=== PATIENT | male | born 1975 | race Caucasian/White ===

== ENCOUNTER 2022-01-17 18:13 | Inpatient (IN) | payer MEDICARE, OTHER ==
[~2022-01-17] VITALS: Ht 180.3 cm; Wt 88.9 kg
--- NOTE | 2022-01-17 18:19 | NUR ---
IGNACIA Foster FROM [facility], FOUND BY STAFF ALTERED. 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 TO ER BED 5, HOOKED TO MONITOR, CHANGED TO HOSP GOWN, WARM BLANKET PROVIDED. PATIENT AWAKE AND VERBALLY RESPONSIVE. BG 128. TO ER BED 5, HOOKED TO MONITOR. CHANGED TO HOSP GOWN, STARTED W 1L NS AT LAC 18G. DR VALDOVINOS AT BEDSIDE
[2022-01-17] MEDS ORDERED: IV NS 0.9% 1,000 ML BAG IV ONE (18:30)
[2022-01-17] MEDS ORDERED: IV NS 0.9% 1,000 ML IV ONE ×2 (18:30→20:30)
--- NOTE | 2022-01-17 18:49 | NUR ---
COVID SWAB DONE AND SENT TO LAB
--- NOTE | 2022-01-17 18:50 | NUR ---
URINE COLLECTED AND SENT TO LAB
[2022-01-17 19:27] LABS: BILIRUBIN,URINE SMALL (NEGATIVE); COLOR,URINE YELLOW (YELLOW); LEUKOCYTE ESTERASE ,URINE NEGATIVE (NEGATIVE); NITRITE, URINE NEGATIVE (NEGATIVE); PH,URINE 5.5 (5.0-8.0); PROTEIN,URINE TRACE mg/dl (NEGATIVE); UGLUCOSE NEGATIVE (NEGATIVE); UROBILINOGEN,URINE 0.2 EU/dL (0.2)
[2022-01-17 19:30] LABS: BACTERIA,URINE None seen /HPF (None Seen); MUCUS,URINE Few /LPF (None Seen); RBC,URINE 0-2 /HPF (0-2); SQUAMOUS EPITHELIAL CELL,UR 0-2 /HPF (None Seen); WBC,URINE 0-2 /HPF (0-3)
--- NOTE | 2022-01-17 19:31 | NUR ---
RECEIVED REPORT FROM SRIRAM PLATA FOR JOSETTE
[2022-01-17 19:37] LABS: CALCIUM, SERUM 7.9 mg/dL (8.5-10.1); CARBON DIOXIDE 29 mmol/L (21-32); CHLORIDE 103 mmol/L (98-107); GLUCOSE 121 mg/dL (74-106); POTASSIUM 4.6 mmol/L (3.5-5.1); SODIUM SERUM 140 mmol/L (136-145); UREA NITROGEN, BLOOD 66 mg/dL (7-18)
--- NOTE | 2022-01-17 19:40 | NUR ---
PT RESTING IN BED, ON HIGH REBREATHER 15L. AAOX2. CONNECTED TO MONITOR. WILL CONTINUE TO MONITOR.
[2022-01-17 19:46] LABS: ALANINE AMINOTRANSFERASE 17 U/L (12-78); ALBUMIN 2.8 g/dL (3.4-5.0); ALKALINE PHOSPHATASE 32 U/L (46-116); ASPARTATE AMINOTRANSFERASE 17 U/L (15-37); BILIRUBIN,DIRECT 0.2 mg/dL (0.0-0.2); BILIRUBIN,TOTAL 0.5 mg/dL (0.2-1.0); TOTAL PROTEIN, SERUM 6.6 g/dL (6.4-8.2)
[2022-01-17 19:51] LABS: ACETAMINOPHEN < 10 ug/ml (10-30); ALCOHOL, BLOOD < 3 mg/dL (0-0)
--- NOTE | 2022-01-17 20:00 | NUR ---
URINE SAMPLE COLLECTED AND SENT TO LAB
[2022-01-17 20:25] LABS: BASOPHILS % (AUTO) 0.1 % (0.0-2.0); HEMATOCRIT 33 % (39-51); HEMOGLOBIN 11.4 g/dL (13.5-17.5); LYMPHOCYTES # (AUTO) 0.8 K/uL (0.8-4.8); LYMPHOCYTES % (AUTO) 5.9 % (20.0-44.0); MEAN CORPUSCULAR HGB CONC 34 g/dl (31.0-36.0); MEAN CORPUSCULAR VOLUME 97 fL (80-96); MONOCYTES # (AUTO) 3.5 K/uL (0.1-1.30); MONOCYTES % (AUTO) 26.3 % (2.0-12.0); NEUTROPHILS # (AUTO) 9.1 K/uL (1.8-8.9); NEUTROPHILS % (AUTO) 67.7 % (43.0-81.0); PLATELET COUNT (AUTO) 59 K/uL (150-450); RED BLOOD CELL COUNT(AUTO) 3.42 MIL/uL (4.5-6.0); WHITE BLOOD COUNT (AUTO) 13.4 K/uL (4.3-11.0)
--- NOTE | 2022-01-17 20:29 | NUR ---
TITRATED O2 DOWN TO 10L ON NON REBREATHER, PT O2 SAT 100. WILL CONTINUE TO MONITOR
--- NOTE | 2022-01-17 20:44 | NUR ---
PT TAKEN FOR CT SCAN
[2022-01-17] MEDS ORDERED: VANCOMYCIN 1 GM VIAL ONE (20:45)
[2022-01-17] MEDS ORDERED: PIPERACILLIN /TAZOBACTAM 3.375 G VIAL IV ONE (20:45)
[2022-01-17] MEDS ORDERED: PIPERACILLIN /TAZOBACTAM 3.375 G in IV D5W 50 ML IV ONE (21:00)
[2022-01-17] MEDS ORDERED: VANCOMYCIN HCL 1.25 GM in IV D5W 260 ML IV ONE (21:00)
--- NOTE | 2022-01-17 21:01 | NUR ---
PT RETURNED FROM CT SCAN , O2 SAT NOTED AT 78 ON NONREBREATHER 10L. INCREASED O2 15L NOW SATTING AT 81. MADE AWARE. RT CALLED.
--- NOTE | 2022-01-17 21:05 | NUR ---
RT AT BEDSIDE
--- NOTE | 2022-01-17 21:25 | NUR ---
RT pt placed on hhfnc post abg results. hhfnc settings 40L 100%. sat mid 90s. tolerating well.
[2022-01-17 21:32] LABS: BAND % (MANUAL) 8 % (0.0-5.0); LYMPHOCYTES % (MANUAL) 14 % (16-48); MONOCYTES % (MANUAL) 15 % (0-11.0); NEUTROPHILS % (MANUAL) 63 (42-76)
--- NOTE | 2022-01-17 21:43 | NUR ---
REPORT GIVEN TO SHERLYN GILL
--- NOTE | 2022-01-17 21:46 | NUR ---
REPORT GIVEN TO JULIENNE Varela FROM [facility]
[2022-01-17 21:54] LABS: ABG BASE EXCESS -3.6 mmol/L; ABG PCO2 47.5 mmHg (35.0-45.0); ABG PH 7.301 (7.350-7.450); ABG PO2 63.9 mmHg (75.0-100.0); COHb 0.3 % (0.5-1.5); MetHb 0.5 % (0.0-1.5); O2Hb 89.1 % (94.0-97.0); SITE, ABG Left Radial; VENT MODE, BG NRB
--- NOTE | 2022-01-17 22:44 | NUR ---
PAUL ADAM CONTACTED AND NOTIFIED THAT PT'S O2 STILL LOW DESPITE HI FLOW O2 W/ NON REBREATHER ON TOP.
--- NOTE | 2022-01-17 22:49 | NUR ---
BP NOTED AT 64/31 L ARM, 60/36 R ARM . MD MADE AWARE. AWAITING MD ORDERS
[2022-01-17] MEDS ORDERED: NOREPINEPHRINE 4 MG/4 ML AMPUL IV ONE (22:54)
[2022-01-17] MEDS ORDERED: HYDROCORTISONE SOD SUCCINATE 100 MG/2 ML VIAL IV ONE (23:00)
[2022-01-17] MEDS ORDERED: ACETAMINOPHEN 325 MG TABLET PO PRN (23:00)
--- NOTE | 2022-01-17 23:00 | NUR ---
INITIATED LEVOPHED 32MG IN 250ML OF 0.9 NS PER MD ORDERS, VIA PUMP LAC18G @0.1MCG. WILL CONTINUE TO MONITOR.
[2022-01-17] MEDS: NOREPINEPHRINE 32 MG in IV NS 0.9% 218 ML IV PRN (23:15)
--- NOTE | 2022-01-17 23:15 | NUR ---
RT pt placed on dual set up, hhfnc and nrb. pt sat 90%. post sat mid 90s. tolerating well.
--- NOTE | 2022-01-17 23:37 | NUR ---
BP 102/60 , WILL MAINTAIN LEVOPHEN DRIP @0.1MCG/KG/MIN. AT THIS TIME . WILL CONTINUE TO MONITOR
[2022-01-18] VITALS (83 sets, daily range): BP systolic 75–138; BP diastolic 46–88
--- NOTE | 2022-01-18 00:20 | NUR ---
RN NOTES RECEIVED CARE OF PATIENT FROM ER NURSE, PATIENT CONFUSED, A/O X2, ABLE TO FOLLOW SIMPLE COMMANDS AND MAKE BASIC NEEDS KNOWN. PATIENT NOTED WITH SOB, ON O2 HIGH FLOW VIA NC AT 40 L/MIN AND 100% FIO2, AND NRB MASK AT 15 L/MIN, O2 SAT IS 100%. PATIENT'S TELE MONITOR READS SINUS RHYTHM WITH HR OF 72, NO DISTRESS NOTED ON PATIENT. SKIN IS INTACT. IV ACCESS ON L & R AC #18, RUNNING WITH LEVO DRIP AT 0.1 MCG/KG/MIN, AND IV NS AT 80 ML/MIN. CARE PLAN REVIEWED, PATIENT EDUCATED ON CARE PLAN. SAFETY MEASURES IMPLEMENTED PER HOSPITAL PROTOCOL. WILL CARRY OUT MD ORDERS AND ATTEND TO PATIENT'S NEEDS.
--- NOTE | 2022-01-18 00:31 | NUR ---
RT pt transferred to floor. placed on dual set up. ambu bag at bedside.
[2022-01-18] MEDS: IV NS 0.9% 1,000 ML IV PRN ×2 (00:53→18:09)
[2022-01-18] MEDS ORDERED: PIPERACILLIN /TAZOBACTAM 3.375 G in IV D5W 50 ML IV ONE ×4 (03:00)
[2022-01-18] MEDS: HEPARIN SODIUM, PORCINE 5000 UNITS/1 ML VIAL SQ SCH ×2 (03:00→08:41)
[2022-01-18] MEDS ORDERED: PIPERACILLIN /TAZOBACTAM 3.375 G VIAL IV ONE (03:15)
--- NOTE | 2022-01-18 03:29 | NUR ---
fiO2 titrated to 80% and 35L. Pt is no longer on double oxygen setup RN notified.
[2022-01-18 04:36] LABS: BASOPHILS % (AUTO) 0.1 % (0.0-2.0); HEMATOCRIT 32 % (39-51); HEMOGLOBIN 11.4 g/dL (13.5-17.5); LYMPHOCYTES # (AUTO) 0.7 K/uL (0.8-4.8); LYMPHOCYTES % (AUTO) 5.1 % (20.0-44.0); MEAN CORPUSCULAR HGB CONC 35 g/dl (31.0-36.0); MEAN CORPUSCULAR VOLUME 95 fL (80-96); MONOCYTES # (AUTO) 2.9 K/uL (0.1-1.30); NEUTROPHILS % (AUTO) 74.8 % (43.0-81.0); PLATELET COUNT (AUTO) 59 K/uL (150-450); RED BLOOD CELL COUNT(AUTO) 3.37 MIL/uL (4.5-6.0); WHITE BLOOD COUNT (AUTO) 14.7 K/uL (4.3-11.0)
[2022-01-18 04:56] LABS: ALBUMIN 2.4 g/dL (3.4-5.0); BILIRUBIN,TOTAL 0.5 mg/dL (0.2-1.0); CALCIUM, SERUM 7.7 mg/dL (8.5-10.1); CREATININE 2.2 mg/dL (0.6-1.3); POTASSIUM 4.8 mmol/L (3.5-5.1); TOTAL PROTEIN, SERUM 6.2 g/dL (6.4-8.2)
[2022-01-18 05:00] LABS: BAND % (MANUAL) 8 % (0.0-5.0); BASOPHILS % (MANUAL) 0 % (0.0-2.0); EOSINOPHILS % (MANUAL) 0 % (0-4); LYMPHOCYTES % (MANUAL) 4 % (16-48); MONOCYTES % (MANUAL) 23 % (0-11.0); NEUTROPHILS % (MANUAL) 65 (42-76)
--- NOTE | 2022-01-18 07:18 | NUR ---
RN NOTES ENDORSED CARE OF PATIENT TO AM NURSE, PATIENT HAS PROGRESSED TO BEING ALERT AND ORIENTED X3, ABLE TO MAKE NEEDS KNOWN. PATIENT IN NO DISCOMFORT OR PAIN AT THIS TIME. O2 TITRATED DOWN TO HIGH FLOW NC AT 35L/MIN WITH FIO2 AT 80%, O2 SAT 100%. CARE PLAN FOLLOWED AND CARRIED OUT. SAFETY MEASURES IMPLEMENTED PER HOSPITAL PROTOCOLS. ENDORSED CARE OF PATIENT TO AM NURSE FOR CONTINUITY OF CARE.
--- NOTE | 2022-01-18 07:44 | NUR ---
fio2 decreased from 80% to 60% for O2 titration. Addendum: 01/18/22 at 0745 by MICKEY CRAWFORD RT Amended: Links added.
[2022-01-18] MEDS: DEXAMETHASONE SOD PHOSPHATE 4 MG/ML VIAL IV SCH (08:34)
[2022-01-18] MEDS ORDERED: PIPERACILLIN /TAZOBACTAM 3.375 G in IV D5W 50 ML IV SCH ×3 (09:00)
[2022-01-18] MEDS ORDERED: APIXABAN 2.5 MG TABLET PO SCH (09:00)
[2022-01-18] MEDS: PIPERACILLIN /TAZOBACTAM 3.375 G in IV D5W 100 ML IV SCH ×2 (10:56→17:55)
[2022-01-18] MEDS ORDERED: IV NS 0.9% 1,000 ML IV ONE (14:30)
[2022-01-18] MEDS: ARGATROBAN 250 MG in IV D5W 247.5 ML IV PRN (17:19)
--- NOTE | 2022-01-18 19:44 | NUR ---
RN NOTES RECEIVED CARE OF PATIENT FROM AM NURSE, PATIENT IS SLEEPING, WAKES UP TO NAME. PATIENT ON HIGH FLOW O2 VIA NC AT 35L/MIN AND 60% FIO02, O2 SAT 99%, NO SIGNS OF DISTRESS. AM NURSE ENDORSED THAT PATIENT HAS BEEN BRADYCARDIC ALL DAY WITH HR BETWEEN 45-50 BPM, DR GARBER MADE AWARE, HR RISES TO 60'S ONCE PATIENT IS WOKEN UP. PATIENT RUNNING WITH IV NS AT 100ML/HR, LEVO DRIP AT 0.04 MCG/KG/MIN, ARGATROBAN DRIP AT 0.2 MCG/KG/MIN. SAFETY MEASURES IMPLEMENTED. WILL CARRY OUT PLAN OF CARE.
--- NOTE | 2022-01-18 20:05 | NUR ---
RT Notes FIO2 titrated from 60% to 50% due to SpO2 97%. Will cont to monitor. Addendum: 01/19/22 at 0006 by AZEB COOK RT Amended: Links added.
[2022-01-18] MEDS ORDERED: VANCOMYCIN 1.25 GM in IV D5W 250 ML IV SCH (21:00)
--- NOTE | 2022-01-18 22:18 | NUR ---
RN NOTES PATIENT'S HEART RATE SUSTAINED BETWEEN 35-40 BPM FOR ABOUT TWO MINUTES THEN INCREASED UP TO HIGH 40'S. PATIENT IS SLEEPING, WAKES UP TO NAME, NO DISTRESS NOTED ON PATIENT. PATIENT ON LEVO DRIP AT 0.04 MCG/KG/MIN WITH SBP WNL. DR. GARBER MADE AWARE, NO NEW ORDERS.
[2022-01-18] MEDS: NOREPINEPHRINE 32 MG in IV NS 0.9% 218 ML IV PRN (23:01)
[2022-01-18] MEDS ORDERED: ATROPINE SULFATE 1 MG/10 ML DISP.SYRIN IV ONE (23:30)
--- NOTE | 2022-01-18 23:30 | NUR ---
RN NOTES PATIENT'S HEART RATE WAS CONSISTENTLY IN THE LOW 40'S, PATIENT NOTED TO BE LETHARGIC. KIA BAUTISTA EDUCATION ASSISTANT EVALUATED THE PATIENT, DISCUSSED TREATMENT PLAN WITH RN, ORDER IS TO HOLD ARGATROBAN DRIP ONE OF THE SIDE EFFECTS OF THIS MEDICATION LOWERS THE HEART RATE. MEDICATION HELD, NOW HEART RATE IS 128 BPM, PATIENT IS AWAKE, NO SIGNS OF ACUTE DISTRESS NOTED.
--- NOTE | 2022-01-18 23:50 | NUR ---
RT notes FIO2 increased from 50% to 70% due to SpO2 dropping to 87% and HR increasing from 40's to 128. Addendum: 01/19/22 at 0012 by AZEB COOK RT Amended: Links added.
[2022-01-19] VITALS (80 sets, daily range): BP systolic 58–133; BP diastolic 29–100
--- NOTE | 2022-01-19 00:20 | NUR ---
RN NOTES PATIENT NOTED TO BE IN UNCONTROLLED AFIB WITH HR BETWEEN 115-140. PATIENT IS AWAKE, NO ACUTE DISTRESS NOTED ON PATIENT. KIA BAUTISTA LOCK SETTER AT PATIENT'S BEDSIDE. ORDER TO RESUME ARGATROBAN DRIP AND ADMINISTER METOPROLOL 5MG IV ONCE.
[2022-01-19] MEDS ORDERED: METOPROLOL TARTRATE INJ 5 MG/5 ML AMPUL IVP ONE (00:30)
--- NOTE | 2022-01-19 01:55 | NUR ---
RT Notes FIO2 titrated from 70% to 55% due to FIO2 97%. Addendum: 01/19/22 at 0207 by AZEB COOK RT Amended: Links added.
[2022-01-19] MEDS: PIPERACILLIN /TAZOBACTAM 3.375 G in IV D5W 100 ML IV SCH ×3 (03:13→20:11)
[2022-01-19 05:28] LABS: BASOPHILS % (AUTO) 0.1 % (0.0-2.0); HEMATOCRIT 36 % (39-51); HEMOGLOBIN 12.6 g/dL (13.5-17.5); LYMPHOCYTES % (AUTO) 8.8 % (20.0-44.0); MEAN CORPUSCULAR HGB CONC 35 g/dl (31.0-36.0); MEAN CORPUSCULAR VOLUME 95 fL (80-96); MONOCYTES # (AUTO) 1.4 K/uL (0.1-1.30); MONOCYTES % (AUTO) 12.3 % (2.0-12.0); NEUTROPHILS # (AUTO) 9.1 K/uL (1.8-8.9); NEUTROPHILS % (AUTO) 78.8 % (43.0-81.0); PLATELET COUNT (AUTO) 57 K/uL (150-450); RED BLOOD CELL COUNT(AUTO) 3.81 MIL/uL (4.5-6.0); WHITE BLOOD COUNT (AUTO) 11.6 K/uL (4.3-11.0)
[2022-01-19 05:53] LABS: CALCIUM, SERUM 8.5 mg/dL (8.5-10.1); CREATININE 1.3 mg/dL (0.6-1.3); MAGNESIUM 2.2 mg/dL (1.8-2.4); PHOSPHORUS 2.5 mg/dL (2.5-4.9); POTASSIUM 4.1 mmol/L (3.5-5.1)
[2022-01-19] MEDS: IV NS 0.9% 1,000 ML IV PRN ×3 (06:03→17:33)
[2022-01-19 06:25] LABS: D-DIMER 0.32 mg/L(FEU (0.17-0.50)
--- NOTE | 2022-01-19 07:00 | NUR ---
RN NOTES WILL ENDORSE CARE OF PATIENT TO AM NURSE, PATIENT SLEEPING, WAKES UP TO NAME. PATIENT IN NO DISTRESS OR COMPLAINING OF PAIN. ALL DUE MEDS GIVEN AND CARE PLAN FOLLOWED. SAFETY MEASURES IMPLEMENTED THROUGHOUT SHIFT. WILL ENDORSE CARE OF PATIENT TO AM NURSE FOR CONTINUITY OF CARE.
[2022-01-19 08:24] LABS: BAND % (MANUAL) 4 % (0.0-5.0); BASOPHILS % (MANUAL) 0 % (0.0-2.0); EOSINOPHILS % (MANUAL) 0 % (0-4); LYMPHOCYTES % (MANUAL) 5 % (16-48); MONOCYTES % (MANUAL) 16 % (0-11.0); NEUTROPHILS % (MANUAL) 75 (42-76)
[2022-01-19] MEDS: DEXAMETHASONE SOD PHOSPHATE 4 MG/ML VIAL IV SCH (09:05)
[2022-01-19] MEDS ORDERED: BENA40TA8 PO (09:53)
[2022-01-19] MEDS ORDERED: DIVA500T54 PO (09:53)
[2022-01-19] MEDS ORDERED: POTA10TA10 PO (09:53)
[2022-01-19] MEDS ORDERED: METO-357 PO (09:53)
[2022-01-19] MEDS ORDERED: SIMV-49 PO (09:53)
[2022-01-19] MEDS ORDERED: BENZ1TAB7 PO (09:53)
[2022-01-19] MEDS ORDERED: HYDR25TA4 PO (09:53)
[2022-01-19] MEDS: VANCOMYCIN 1.25 GM in IV D5W 250 ML IV SCH ×2 (10:42→23:00)
[2022-01-19] MEDS ORDERED: AMIODARONE 150 MG in IV D5W 100 ML IV ONE (14:00)
[2022-01-19] MEDS ORDERED: IOHEXOL-350 100 ML VIAL IV ONE (14:06)
[2022-01-19] MEDS: AMIODARONE 450 MG in IV D5W 241 ML IV PRN (15:27)
[2022-01-19] MEDS ORDERED: NOREPINEPHRINE 8 MG in IV NS 0.9% 242 ML IV PRN (18:00)
[2022-01-19] MEDS: ARGATROBAN 250 MG in IV D5W 247.5 ML IV PRN (19:09)
--- NOTE | 2022-01-19 19:30 | NUR ---
RN NOTE Received a 46 year old male, alert and oriented x4. cooperative and able to make needs known. Breathing even and unlabored. on Nasal cannula at 4L/min with oxygen saturation of 97 percent via bedside monitor. Noted with productive cough. No sputum. Hob elevated 30 degrees. Denies SOB. Denies pain. On tele monitoring. Denies chest pain. Skin is warm and dry to touch. Left ac 18, Left upper arm midline, right ac 18. Patent. Currently infusing Amiodarone at 1mcg, NS at 100 ml/hr, Argatroban at 0.50 mcg. No infiltration. No active bleeding at this time. Urinal at bedside. Assisted with turning and repositioning, provided fluids for hydration. Bed low in locked position. call light within reach.
--- NOTE | 2022-01-19 19:46 | NUR ---
RN CLOSING PT RESTING COMFORTABLY IN THE ROOM NO S/S OF DISTRESS OF ANY KIND V/S STABLE AND WNL. LEVO DRIP HELD PT TOLERATING WELL. TITRATED DOWN FROM 6L NC TO 4L NC. STARTED ON AMIODARONE DRIP.
[2022-01-20] VITALS (28 sets, daily range): BP systolic 92–134; BP diastolic 54–80
[2022-01-20] MEDS: AMIODARONE 450 MG in IV D5W 241 ML IV PRN ×2
[2022-01-20] MEDS: IV NS 0.9% 1,000 ML IV PRN ×2 (01:01→14:20)
[2022-01-20] MEDS: PIPERACILLIN /TAZOBACTAM 3.375 G in IV D5W 100 ML IV SCH ×3 (02:33→18:19)
[2022-01-20 04:58] LABS: BASOPHILS % (AUTO) 0.1 % (0.0-2.0); HEMATOCRIT 31 % (39-51); HEMOGLOBIN 10.9 g/dL (13.5-17.5); LYMPHOCYTES # (AUTO) 0.7 K/uL (0.8-4.8); LYMPHOCYTES % (AUTO) 6.7 % (20.0-44.0); MEAN CORPUSCULAR HGB CONC 36 g/dl (31.0-36.0); MEAN CORPUSCULAR VOLUME 95 fL (80-96); MONOCYTES # (AUTO) 1.2 K/uL (0.1-1.30); MONOCYTES % (AUTO) 11.9 % (2.0-12.0); NEUTROPHILS % (AUTO) 81.3 % (43.0-81.0); PLATELET COUNT (AUTO) 62 K/uL (150-450); RED BLOOD CELL COUNT(AUTO) 3.23 MIL/uL (4.5-6.0); WHITE BLOOD COUNT (AUTO) 9.8 K/uL (4.3-11.0)
[2022-01-20 05:29] LABS: ALBUMIN 1.9 g/dL (3.4-5.0); BILIRUBIN,TOTAL 0.5 mg/dL (0.2-1.0); CALCIUM, SERUM 7.9 mg/dL (8.5-10.1); CREATININE 1.2 mg/dL (0.6-1.3); MAGNESIUM 1.7 mg/dL (1.8-2.4); PHOSPHORUS 3.4 mg/dL (2.5-4.9); POTASSIUM 4.3 mmol/L (3.5-5.1); TOTAL PROTEIN, SERUM 5.4 g/dL (6.4-8.2)
[2022-01-20] MEDS: DEXAMETHASONE SOD PHOSPHATE 10 MG/ML VIAL IV SCH (08:23)
[2022-01-20] MEDS: VANCOMYCIN 1.25 GM in IV D5W 250 ML IV SCH ×2 (09:25→22:06)
[2022-01-20] MEDS: Magnesium 1GM/D5W 100ML PREMIX 100 ML IV SCH ×2 (09:33→10:33)
[2022-01-20] MEDS ORDERED: IV NS 0.9% 250 ML IV PRN (19:30)
--- NOTE | 2022-01-20 19:39 | NUR ---
RN NOTE Received patient in bed,awake, alert and oriented x4. cooperative and able to make needs known. Breathing even and unlabored. On room air at this time with oxygen saturation of 90 percent. placed patient back on nasal cannula at 3L/min. o2 saturation of 96 percent via bedside monitor. Noted with productive cough. No sputum. Hob elevated 30 degrees. Denies SOB. Denies pain. On tele monitoring. Denies chest pain. Skin is warm and dry to touch. Left ac 18, Left upper arm midline, right ac 18. Patent. Currently infusing NS at 100 ml/hr & Zosyn at 25 ml/hr.. No infiltration. No active bleeding at this time. Urinal at bedside. Assisted with turning and repositioning, provided fluids for hydration. Bed low in locked position. call light within reach.
[2022-01-20] MEDS: AMIODARONE HCL 200 MG TABLET PO SCH (20:53)
--- NOTE | 2022-01-20 20:53 | NUR ---
RN NOTE 2100 Scheduled PO amiodarone held. Patient with Apical heart rate of 48 BPM. Held medication per Heart rate paramter.
[2022-01-21] VITALS (17 sets, daily range): BP systolic 101–133; BP diastolic 63–78
[2022-01-21] MEDS: PIPERACILLIN /TAZOBACTAM 3.375 G in IV D5W 100 ML IV SCH ×3 (03:18→18:09)
[2022-01-21 04:41] LABS: HEMATOCRIT 29 % (39-51); HEMOGLOBIN 10.4 g/dL (13.5-17.5); LYMPHOCYTES # (AUTO) 0.5 K/uL (0.8-4.8); LYMPHOCYTES % (AUTO) 6.3 % (20.0-44.0); MEAN CORPUSCULAR HGB CONC 35 g/dl (31.0-36.0); MEAN CORPUSCULAR VOLUME 95 fL (80-96); MONOCYTES # (AUTO) 1.1 K/uL (0.1-1.30); MONOCYTES % (AUTO) 13.7 % (2.0-12.0); NEUTROPHILS # (AUTO) 6.3 K/uL (1.8-8.9); PLATELET COUNT (AUTO) 65 K/uL (150-450); RED BLOOD CELL COUNT(AUTO) 3.11 MIL/uL (4.5-6.0); WHITE BLOOD COUNT (AUTO) 7.8 K/uL (4.3-11.0)
[2022-01-21 04:53] LABS: CALCIUM, SERUM 7.8 mg/dL (8.5-10.1); CREATININE 1.1 mg/dL (0.6-1.3); PHOSPHORUS 4.3 mg/dL (2.5-4.9); POTASSIUM 4.4 mmol/L (3.5-5.1)
[2022-01-21 05:18] LABS: MAGNESIUM 2.2 mg/dL (1.8-2.4)
[2022-01-21] MEDS: DEXAMETHASONE SOD PHOSPHATE 10 MG/ML VIAL IV SCH (08:29)
[2022-01-21] MEDS: AMIODARONE HCL 200 MG TABLET PO SCH ×2 (08:33→21:00)
--- NOTE | 2022-01-21 08:35 | NUR ---
RN NOTE 0900 Cordarone 400 mg PO held secondary for HR < 60 per parameter.
[2022-01-21] MEDS: VANCOMYCIN 1.25 GM in IV D5W 250 ML IV SCH (09:48)
[2022-01-21] MEDS: IV NS 0.9% 1,000 ML IV PRN ×2 (13:56)
--- NOTE | 2022-01-21 16:56 | NUR ---
RN Note: Family called ICU and updated them on pt progress and plan of care. Spoke to Jax (Pt older brother) and Tila (Pt mother). Johnny (Pt. Father) personally came to ICU and spoke to his son at bedside. All questions and concerns answered. [employer] representative also called. Addressed concerned abouit (+) Covid results. Pt maybe isolated upon returning to assisted living facility due to (+) Covid result per living facility protocol. Pt doing well overall, Cont Covid Isolation, remains AAOx4, VSS requiring minimal O2 @ 3 to 4L NC with no resp distress noted, will resume diet. Pt will be downgraded to [facility] this evening.
--- NOTE | 2022-01-21 17:30 | NUR ---
RN NOTE RECEIVED PATIENT FROM ICU, IN STABLE CONDITION PLACED IN ROOM 105.
--- NOTE | 2022-01-21 17:51 | NUR ---
RN Note: Transferred to [facility] #[id number]. Report given to SHERLYN Gillespie
--- NOTE | 2022-01-21 18:38 | NUR ---
RN CLOSING NOTE PATIENT RESTING IN BED A/OX4 ON 3L NC WITH NO SINGS OF DISTRESS OR COMPLAINTS OF PAIN. PATIENT IS ABLE TO MAKE NEEDS KNOW. IV ACCES ON NEGIN MIDLINE AND BILATERAL ARM AC 18. NS 0.9% CURRENTLY RUNNING AT 100MLS/HR. PATIENT WAS TRANSFERRED FORM ICU TODAY AT 1730 IN STABLE CONDITION.PATIENT CONNECTED TO TELE MONITOR. SAFETY MEASURES IN PLACE CALL LIGHT WITHIN REACH BED ALARM ACTIVATED, 2 SIDE RAILS UP BE IN THE SEMI FOWLERS POSITION. WILL ENDORSE TO NIGHT NURSE FOR JOSETTE.
--- NOTE | 2022-01-21 19:30 | NUR ---
BALL WARPER TENDER OPENING NOTE RECEIVED PATIENT RESTING IN BED A/OX4. ON O2 VIA NC AT 3LPM. WITH NO SIGNS OF DISTRESS OR COMPLAINTS OF PAIN. PATIENT IS ABLE TO MAKE NEEDS KNOWN. IV ACCES ON NEGIN MIDLINE CURRENTLY RUNNING NS AT 100MLS/HR AND BILATERAL ARM AC 18. ON TELEMONITORING CURRENTLY READING SB AT 45, ASYMPTOMATIC, SAFETY MEASURES IN PLACED, CALL LIGHT WITHIN REACH, BED ALARM ACTIVATED, 2 SIDE RAILS UP BE IN THE SEMI FOWLERS POSITION. WILL CONTINUE TO MONITOR THROUGHOUT THE SHIFT.
--- NOTE | 2022-01-21 20:00 | NUR ---
RN NOTE RECEIVED A CALL FROM PHARMACY FOR A LEVOPHED MEDICATION THAT NEEDS TO BE D/C SINCE THE PATIENTS CARE HAS BEEN DOWNGRADED FROM ICU TO TELEMETRY 1ST FLOOR. CN MADE AWARE.
--- NOTE | 2022-01-21 21:00 | NUR ---
RN NOTE NOTED PT HR <60, HOLD DOSE OF AMIODARONE PO AT THIS TIME PER MD ORDERED. WILL CONT TO MONITOR.
[2022-01-21] MEDS: VANCOMYCIN 1 GM in IV D5W 250 ML IV SCH (21:46)
[2022-01-22] VITALS: BP 114/72
[2022-01-22] MEDS: PIPERACILLIN /TAZOBACTAM 3.375 G in IV D5W 100 ML IV SCH ×3 (03:29→18:02)
[2022-01-22 04:00] VITALS: BP 122/69
[2022-01-22] MEDS: IV NS 0.9% 1,000 ML IV PRN (05:41)
[2022-01-22 05:58] LABS: BASOPHILS % (AUTO) 0.1 % (0.0-2.0); HEMATOCRIT 30 % (39-51); HEMOGLOBIN 10.6 g/dL (13.5-17.5); LYMPHOCYTES # (AUTO) 0.9 K/uL (0.8-4.8); LYMPHOCYTES % (AUTO) 12.4 % (20.0-44.0); MEAN CORPUSCULAR HGB CONC 36 g/dl (31.0-36.0); MEAN CORPUSCULAR VOLUME 93 fL (80-96); MONOCYTES # (AUTO) 1.5 K/uL (0.1-1.30); MONOCYTES % (AUTO) 20.6 % (2.0-12.0); NEUTROPHILS # (AUTO) 4.7 K/uL (1.8-8.9); NEUTROPHILS % (AUTO) 66.9 % (43.0-81.0); PLATELET COUNT (AUTO) 79 K/uL (150-450); RED BLOOD CELL COUNT(AUTO) 3.18 MIL/uL (4.5-6.0); WHITE BLOOD COUNT (AUTO) 7.1 K/uL (4.3-11.0)
[2022-01-22 06:08] LABS: CALCIUM, SERUM 7.7 mg/dL (8.5-10.1); CREATININE 1.1 mg/dL (0.6-1.3); MAGNESIUM 2.1 mg/dL (1.8-2.4); POTASSIUM 3.8 mmol/L (3.5-5.1)
--- NOTE | 2022-01-22 06:40 | NUR ---
GRAIN BROKER AND MARKET OPERATOR CLOSING NOTE PATIENT REMAINS IN BED, A/OX4. ON O2 VIA NC AT 3LPM. WITH NO SIGNS OF DISTRESS OR COMPLAINTS OF PAIN. PATIENT ABLE TO MAKE NEEDS KNOWN. IV ACCES ON NEGIN MIDLINE CURRENTLY RUNNING NS AT 100MLS/HR AND BILATERAL ARM AC 18 RUNNING ZOSYN AT 25 ML/HR. ON TELEMONITORING CURRENTLY READING SB AT 54, SAFETY MEASURES IN PLACED, CALL LIGHT WITHIN REACH, BED ALARM ACTIVATED, 2 SIDE RAILS UP. ISOLATION PRECAUTION IN PLACED, WILL ENDORSE TO AM SHIFT NURSE.
--- NOTE | 2022-01-22 07:38 | NUR ---
RN OPENING NOTE RECEIVED PT IN BED, A/OX4. ON O2 VIA NC AT 3LPM. WITH NO SIGNS OF DISTRESS OR COMPLAINTS OF PAIN. IV ACCES ON NEGIN MIDLINE CURRENTLY RUNNING NS AT 100MLS/HR AND BILATERAL ARM AC 18G. ON TELE CURRENTLY READING SB AT 54, SAFETY MEASURES IN PLACE, CALL LIGHT WITHIN REACH, BED ALARM ACTIVATED, 2 SIDE RAILS UP. ISOLATION PRECAUTION IN PLACED, WILL CONTINUE TO MONITOR THROUGHOUT SHIFT.
[2022-01-22 08:00] VITALS: BP 129/69
[2022-01-22] MEDS: DEXAMETHASONE SOD PHOSPHATE 10 MG/ML VIAL IV SCH (08:31)
[2022-01-22] MEDS: AMIODARONE HCL 200 MG TABLET PO SCH ×2 (08:32→21:00)
[2022-01-22 08:52] LABS: NEUTROPHILS % (MANUAL) 69 (42-76)
[2022-01-22 08:53] LABS: BAND % (MANUAL) 2 % (0.0-5.0); BASOPHILS % (MANUAL) 0 % (0.0-2.0); EOSINOPHILS % (MANUAL) 0 % (0-4); LYMPHOCYTES % (MANUAL) 11 % (16-48); MONOCYTES % (MANUAL) 18 % (0-11.0)
[2022-01-22] MEDS: VANCOMYCIN 1 GM in IV D5W 250 ML IV SCH ×2 (09:15→21:24)
[2022-01-22] MEDS: ENOXAPARIN SODIUM 40 MG/0.4 ML DISP.SYRIN SQ SCH (10:01)
[2022-01-22] MEDS ORDERED: DOCU-141 PO (10:55)
[2022-01-22] MEDS ORDERED: CLOZ100T32 PO (10:55)
[2022-01-22 12:00] VITALS: BP 104/63
[2022-01-22 16:00] VITALS: BP 113/79
--- NOTE | 2022-01-22 19:20 | NUR ---
RN OPENING NOTE RECEIVED PATIENT RESTING IN BED. AWAKE, ALERT AND ORIENTED X 4. ABLE TO MAKE NEEDS KNOWN. DENIES PAIN AT THIS TIME. CONTINUES ON O2 3L VIA NC WITH NO S/SX OF RESPIRATORY DISTRESS NOTED. IV ACCESS TO LEFT UPPER ARM MIDLINE #18G, RIGHT AC#18G AND LEFT AC #18G ALL INTACT AND PATENT. CONTINUES ON IVF NS @ 100ML/HR. CONTINUES ON IV ABX. TELE MONITOR IN PLACE WITH CURRENT READING SR. CALL LIGHT WITHIN REACH. ASPIRATION, FALL AND SAFETY PRECAUTIONS MAINTAINED. ALL NEEDS ATTENDED TO AT THIS TIME.
--- NOTE | 2022-01-22 19:32 | NUR ---
RN CLOSING NOTE PT IN BED, A/OX4. ON O2 VIA NC AT 3LPM. WITH NO SIGNS OF DISTRESS OR COMPLAINTS OF PAIN. IV ACCES ON NEGIN MIDLINE CURRENTLY RUNNING NS AT 100MLS/HR AND BILATERAL ARM AC 18G. ON TELE CURRENTLY READING SB IN 50'S, SAFETY MEASURES IN PLACE, CALL LIGHT WITHIN REACH, BED ALARM ACTIVATED, 2 SIDE RAILS UP. ISOLATION PRECAUTION IN PLACED, WILL ENDORSE TO ROLLER DIE CUTTING MACHINE OPERATOR NURSE FOR JOSETTE.
[2022-01-22 20:00] VITALS: BP 136/66
[2022-01-22] MEDS: DOCUSATE SODIUM 100 MG CAPSULE PO SCH (21:24)
[2022-01-22] MEDS: DIVALPROEX SODIUM 500 MG TABLET.DR PO SCH (21:24)
[2022-01-22] MEDS: SIMVASTATIN 20 MG TABLET PO SCH (21:24)
--- NOTE | 2022-01-22 21:25 | NUR ---
RN NOTE PATIENTS HR IS 52. HOLDING AMIODARONE PER MD INSTRUCTIONS TO HOLD FOR HR < 60.
[2022-01-23] VITALS: BP 136/66
[2022-01-23] MEDS: PIPERACILLIN /TAZOBACTAM 3.375 G in IV D5W 100 ML IV SCH ×3 (03:26→19:48)
[2022-01-23 04:00] VITALS: BP 128/59
[2022-01-23 06:04] LABS: BASOPHILS % (AUTO) 0.1 % (0.0-2.0); EOSINOPHILS % (AUTO) 0.1 % (0.0-6.0); HEMATOCRIT 31 % (39-51); HEMOGLOBIN 11.2 g/dL (13.5-17.5); LYMPHOCYTES # (AUTO) 1.7 K/uL (0.8-4.8); LYMPHOCYTES % (AUTO) 24.9 % (20.0-44.0); MEAN CORPUSCULAR HGB CONC 36 g/dl (31.0-36.0); MEAN CORPUSCULAR VOLUME 93 fL (80-96); MONOCYTES # (AUTO) 1.1 K/uL (0.1-1.30); MONOCYTES % (AUTO) 15.6 % (2.0-12.0); NEUTROPHILS # (AUTO) 4.1 K/uL (1.8-8.9); NEUTROPHILS % (AUTO) 59.3 % (43.0-81.0); PLATELET COUNT (AUTO) 109 K/uL (150-450); RED BLOOD CELL COUNT(AUTO) 3.37 MIL/uL (4.5-6.0); WHITE BLOOD COUNT (AUTO) 6.9 K/uL (4.3-11.0)
--- NOTE | 2022-01-23 06:10 | NUR ---
MS/RN CLOSING NOTE PATIENT CURRENTLY RESTING IN BED. AWAKE, ALERT AND ORIENTED X 4. ABLE TO MAKE NEEDS KNOWN. DENIES PAIN AT THIS TIME. CONTINUES ON O2 3L VIA NC WITH NO S/SX OF RESPIRATORY DISTRESS NOTED. IV ACCESS TO LEFT UPPER ARM MIDLINE #18G AND LEFT AC #18G BOTH INTACT AND PATENT. CONTINUES ON IVF NS @ 100ML/HR. CONTINUES ON IV ABX. PATIENT IS AMBULATORY WITH STAND-BY ASSIST. CALL LIGHT WITHIN REACH. ASPIRATION, FALL AND SAFETY PRECAUTIONS MAINTAINED. WILL ENDORSE PLAN OF CARE TO ONCOMING SHIFT RN.
[2022-01-23 06:30] LABS: CALCIUM, SERUM 7.7 mg/dL (8.5-10.1); CREATININE 1.2 mg/dL (0.6-1.3); MAGNESIUM 1.9 mg/dL (1.8-2.4); PHOSPHORUS 3.8 mg/dL (2.5-4.9); POTASSIUM 3.3 mmol/L (3.5-5.1)
--- NOTE | 2022-01-23 07:44 | NUR ---
RN OPENING NOTE PATIENT CURRENTLY RESTING IN BED. AWAKE, ALERT AND ORIENTED X 4. ABLE TO MAKE NEEDS KNOWN. DENIES PAIN AT THIS TIME. CONTINUES ON O2 3L VIA NC WITH NO S/SX OF RESPIRATORY DISTRESS NOTED. IV ACCESS TO LEFT UPPER ARM MIDLINE #18G AND LEFT AC #18G BOTH INTACT AND PATENT. CONTINUES ON IVF NS @ 100ML/HR. CONTINUES ON IV ABX. PATIENT IS AMBULATORY WITH STAND-BY ASSIST. CALL LIGHT WITHIN REACH. ASPIRATION, FALL AND SAFETY PRECAUTIONS MAINTAINED. WILL CONTINUE PLAN OF CARE AND ANTICIPATE NEEDS.
[2022-01-23 08:00] VITALS: BP 105/69
[2022-01-23 08:35] LABS: BAND % (MANUAL) 2 % (0.0-5.0); BASOPHILS % (MANUAL) 0 % (0.0-2.0); EOSINOPHILS % (MANUAL) 0 % (0-4); LYMPHOCYTES % (MANUAL) 30 % (16-48); MONOCYTES % (MANUAL) 16 % (0-11.0); NEUTROPHILS % (MANUAL) 52 (42-76)
[2022-01-23] MEDS: AMIODARONE HCL 200 MG TABLET PO SCH ×2 (08:53→21:00)
[2022-01-23] MEDS: DEXAMETHASONE SOD PHOSPHATE 10 MG/ML VIAL IV SCH (08:58)
[2022-01-23] MEDS ORDERED: BENAZEPRIL HCL 20 MG TABLET PO SCH (09:00)
[2022-01-23] MEDS: CLOZAPINE 100 MG TABLET PO SCH ×2 (09:00→21:08)
[2022-01-23] MEDS ORDERED: METOPROLOL SUCCINATE 50 MG TAB.SR.24H PO SCH (09:00)
[2022-01-23] MEDS ORDERED: HYDROCHLOROTHIAZIDE 25 MG TABLET PO SCH (09:00)
[2022-01-23] MEDS: ENOXAPARIN SODIUM 40 MG/0.4 ML DISP.SYRIN SQ SCH (09:02)
--- NOTE | 2022-01-23 09:13 | NUR ---
amiodarone not administered. heart rate at 52 beats per minute.
[2022-01-23] MEDS ORDERED: POTASSIUM CHLORIDE 20 MEQ TAB.PRT.SR PO SCH (10:30)
[2022-01-23] MEDS: IV NS 0.9% 1,000 ML IV PRN ×2 (10:44→23:33)
[2022-01-23] MEDS: VANCOMYCIN 1 GM in IV D5W 250 ML IV SCH ×2 (10:44→22:03)
[2022-01-23] MEDS ORDERED: AMIO200T7 PO (12:53)
[2022-01-23] MEDS ORDERED: DEXA6TAB6 PO (12:53)
[2022-01-23 16:00] VITALS: BP 122/71
[2022-01-23] MEDS ORDERED: APIX5TAB PO (17:12)
[2022-01-23] MEDS ORDERED: ASPI-1169 PO (18:26)
--- NOTE | 2022-01-23 18:27 | NUR ---
RN CLOSING NOTE PATIENT CURRENTLY RESTING IN BED. AWAKE, ALERT AND ORIENTED X 4. ABLE TO MAKE NEEDS KNOWN. DENIES PAIN AT THIS TIME. ON ROOM AIR WITH OXYGEN SATURATION IN HIGH 90S. IV ACCESS TO LEFT UPPER ARM MIDLINE #18G AND LEFT AC #18G BOTH INTACT AND PATENT. CONTINUES ON IVF NS @ 100ML/HR. PATIENT IS AMBULATORY WITH STAND-BY ASSIST. CALL LIGHT WITHIN REACH. ASPIRATION, FALL AND SAFETY PRECAUTIONS MAINTAINED. AWAITING DISCHARGE TO SNF FACILITY. WILL ENDORSE TO NIGHTSHIFT RN FOR CONTINUATION OF CARE.
--- NOTE | 2022-01-23 19:30 | NUR ---
RN OPENING NOTE RECEIVED CARE OF PATIENT FROM AM NURSE, PATIENT IN BED, ALERT / ORIENTED X4, ABLE TO MAKE NEEDS KNOWN. PATIENT ON ROOM AIR, TOLERATING WELL, NO SOB NOTED. IV ACCESS ON LEFT UPPER ARM MIDLINE #18G AND LEFT AC #18G BOTH INTACT AND PATENT, RUNNING WITH IVF NS @ 100ML/HR. SAFETY MEASURES IMPLEMENTED, CALL LIGHT WITHIN REACH. ASPIRATION, FALL AND SAFETY PRECAUTIONS MAINTAINED. AWAITING DISCHARGE TO [facility]LTER FACILITY. WILL CONTINUE WITH PLAN OF CARE.
--- NOTE | 2022-01-23 20:01 | NUR ---
SHERLYN Soni from [facility] called to follow up on picker box operator time for patient. As endorsed it was supposed to be 1929 picker box operator; will follow up. Called [employer] and spoke to Margarita, apparently no schedule was found on their system for picker box operator; will arrange and call me back. Nae notified and Primary SHERLYN Jc made aware Addendum: 01/23/22 at 2010 by BRAULIO MICHAEL RN 2009 Margarita called back. [facility] will picker box operator patient bet [phone]. [facility] made aware c/o Nae Addendum: 01/23/22 at 2024 by BRAULIO MICHAEL RN 2024 med list faxed to [facility] as per Nae's request Addendum: 01/23/22 at 2154 by BRAULIO MICHAEL RN [facility] called, will be here in an hour Addendum: 01/23/22 at 2306 by BRAULIO MICHAEL RN 2300 Margarita Terrell called again to say ambulance is an hour behindBeatris patino aware Addendum: 01/24/22 at 0007 by BRAULIO MICHAEL RN 0006 follow up call made to [facility], another 30-45 mins late again Addendum: 01/24/22 at 0107 by BRAULIO MICHAEL RN 0103 patient discharge to [facility] via [facility] in stable condition. NEGIN Midline kept in place. Remains on room air denies SOB. Discharge papers and belongings sent with patient. [facility] notified.
[2022-01-23 21:00] VITALS: BP 123/69
[2022-01-23] MEDS: SIMVASTATIN 20 MG TABLET PO SCH (21:08)
[2022-01-23] MEDS: DOCUSATE SODIUM 100 MG CAPSULE PO SCH (21:08)
[2022-01-23] MEDS: DIVALPROEX SODIUM 500 MG TABLET.DR PO SCH (21:08)
== END 2022-01-24 01:14 | DRG 871 ==
LOC: ER 18:18 → ICU 23:44 → TELE1 01-21 17:36 → MEDSG1 01-22 08:01
PROVIDERS: ADMIT Nurse Practitioner Acute Care; ATTEND Student in an Organized Health Care Education/Training Program
PROC: 05HC33Z Insertion of Infusion Device into Left Basilic Vein, Percutaneous Approach (ICD-10-PCS; principal; 2022-01-18)
DX: A41.89 Other specified sepsis (principal); G92.8 Other toxic encephalopathy; J12.82 Pneumonia due to coronavirus disease 2019; N17.0 Acute kidney failure with tubular necrosis; J96.01 Acute respiratory failure with hypoxia; R65.21 Severe sepsis with septic shock; U07.1 COVID-19; J15.9 Unspecified bacterial pneumonia; R57.1 Hypovolemic shock; J96.02 Acute respiratory failure with hypercapnia; E44.0 Moderate protein-calorie malnutrition; D68.69 Other thrombophilia; I48.91 Unspecified atrial fibrillation; E83.51 Hypocalcemia; D69.6 Thrombocytopenia, unspecified; E88.09 Other disorders of plasma-protein metabolism, not elsewhere classified; E11.9 Type 2 diabetes mellitus without complications; Z86.59 Personal history of other mental and behavioral disorders; I10 Essential (primary) hypertension; D72.825 Bandemia; D63.8 Anemia in other chronic diseases classified elsewhere; E87.6 Hypokalemia
CPT/HCPCS: 36410; 36415; 36600; 70450-TC; 71045-TC; 71250-TC; 80048-TC; 80053-TC; 80076-TC; 80202-TC; 81001; 82550-TC; 83605-TC; 83690-TC; 83735-TC; 84100-TC; 84484-TC; 85025-TC; 85378-TC; 85610-TC; 85730-TC; 86022; 86140-TC; 87040-TC; 87081-TC; 87086-TC; 92526; 92611-TC; 93307-TC; 93970-TC; 94760-TC; 94799-TC; 97116-TC; 97530-TC; A4349; A4624; C9803; G0378; G0480; J0282; J0883; J1100; J1650; J1720; J2543; J3370; J3475; J3490; J7030; J7050; J7060; Q9967

== ENCOUNTER 2023-12-29 06:26 | Inpatient (IN) | payer BC, MEDICAID ==
[~2023-12-29] VITALS: Ht 180.3 cm; Wt 98.0 kg
[2023-12-29] VITALS (16 sets, daily range): BP systolic 109–139; BP diastolic 72–90; TEMP 97.7–98.3; O2SAT 88–98
[~2023-12-29 06:26] MED LIST: AMIO200T7 PO; ASPI-1169 PO; BENA40TA8 PO; BENZ1TAB7 PO; CLOZ100T32 PO; DEXA6TAB6 PO; DIVA500T54 PO; DOCU-141 PO; HYDR25TA4 PO; METO-357 PO; POTA10TA10 PO; SIMV-49 PO
[2023-12-29] MEDS ORDERED: CEFEPIME 1 GM VIAL ONE (06:49)
[2023-12-29] MEDS ORDERED: VANCOMYCIN 1 GM /D5W 250 ML PB IV ONE (06:50)
[2023-12-29] MEDS ORDERED: ACETAMINOPHEN ES 500 MG TABLET ONE (06:50)
[2023-12-29 06:57] LABS: BASOPHILS # (AUTO) 0.1 K/uL (0.0-0.2); BASOPHILS % (AUTO) 0.7 % (0.0-2.0); HEMATOCRIT 34 % (39-51); LYMPHOCYTES # (AUTO) 1.4 K/uL (0.8-4.8); LYMPHOCYTES % (AUTO) 15.1 % (20.0-44.0); MEAN CORPUSCULAR HEMOGLOBIN 34 PG (26.0-33.0); MEAN CORPUSCULAR HGB CONC 36 g/dl (31.0-36.0); MEAN CORPUSCULAR VOLUME 95 fL (80-96); MONOCYTES # (AUTO) 1.4 K/uL (0.1-1.30); MONOCYTES % (AUTO) 15.4 % (2.0-12.0); NEUTROPHILS # (AUTO) 6.2 K/uL (1.8-8.9); NEUTROPHILS % (AUTO) 68.8 % (43.0-81.0); PLATELET COUNT (AUTO) 320 K/uL (150-450); RED BLOOD CELL COUNT(AUTO) 3.58 MIL/uL (4.5-6.0); RED CELL DISTRIBUTION WIDTH 13.3 % (11.5-15.0)
[2023-12-29] MEDS: ACETAMINOPHEN ES 500 MG TABLET PO ONE (07:02)
[2023-12-29] MEDS: CEFEPIME 1 GM in IV D5W 50 ML IV ONE (07:02)
[2023-12-29] MEDS: VANCOMYCIN 1 GM in IV D5W 250 ML IV ONE (07:02)
[2023-12-29 07:10] LABS: CALCIUM, SERUM 9.5 mg/dL (8.5-10.1); CARBON DIOXIDE 33 mmol/L (21-32); CHLORIDE 100 mmol/L (98-107); CREATININE 0.8 mg/dL (0.6-1.3); GLUCOSE 130 mg/dL (74-106); INR 1.03 (0.91-1.10); PARTIAL THROMBOPLASTIN TIME 32.8 SEC (24.3-34.3); PROTHROMBIN TIME 10.9 SECS (9.2-11.1); SODIUM SERUM 141 mmol/L (136-145); UREA NITROGEN, BLOOD 12 mg/dL (7-18)
[2023-12-29 07:13] LABS: LACTIC ACID 1.3 mmol/L (0.4-2.0)
[2023-12-29 07:20] LABS: ALANINE AMINOTRANSFERASE 21 U/L (12-78); ALBUMIN 2.2 g/dL (3.4-5.0); ALKALINE PHOSPHATASE 64 U/L (46-116); ASPARTATE AMINOTRANSFERASE 12 U/L (15-37); BILIRUBIN,DIRECT 0.1 mg/dL (0.0-0.2); BILIRUBIN,TOTAL 0.6 mg/dL (0.2-1.0); NT-PRO BNP 197 pg/mL (0-125); TOTAL PROTEIN, SERUM 7.8 g/dL (6.4-8.2)
[2023-12-29] MEDS ORDERED: CT SWABBABLE VALVE TRANS SET 1 EA INFUS.SET MC ONE (07:43)
[2023-12-29] MEDS ORDERED: IV NS 0.9% 250 ML IV ONE (07:43)
[2023-12-29] MEDS ORDERED: IOHEXOL-350 100 ML VIAL IV ONE (07:43)
[2023-12-29] MEDS: IV NS 0.9% 1,000 ML BAG IV ONE (08:15)
[2023-12-29] MEDS ORDERED: ATOR40TA PO (08:57)
[2023-12-29] MEDS ORDERED: CLOZ200T29 PO (08:57)
[2023-12-29] MEDS ORDERED: MAGNESIUM HYDROXIDE 30 ML UDC PO PRN (11:00)
[2023-12-29] MEDS ORDERED: Z GUARD REMEDY 4 OZ OINT TP PRN (11:00)
[2023-12-29] MEDS: ENOXAPARIN SODIUM 40 MG/0.4 ML DISP.SYRIN SQ SCH (12:00)
[2023-12-29] MEDS ORDERED: ENOXAPARIN SODIUM 40 MG/0.4 ML DISP.SYRIN SQ ONE (12:36)
[2023-12-29] MEDS: CEFEPIME 2 GM in IV D5W 100 ML IV SCH (12:50)
[2023-12-29] MEDS: IV NS 0.9% 1,000 ML IV PRN (12:50)
[2023-12-29] MEDS ORDERED: methylPREDNISolone SOD SUCC 40 MG/ML VIAL ONE (14:48)
[2023-12-29] MEDS: methylPREDNISolone SOD SUCC 125 MG/2ML VIAL IV SCH (14:50)
[2023-12-29] MEDS: VANCOMYCIN HCL 1.25 GM in IV D5W 250 ML IV SCH (16:44)
[2023-12-29] MEDS: BENZTROPINE MESYLATE (1 MG) 1 MG TABLET PO SCH (16:45)
[2023-12-29] MEDS: ONDANSETRON HCL/PF 4 MG/2 ML VIAL IVP PRN (20:32)
[2023-12-29] MEDS: MAG HYDROX/AL HYDROX/SIMETH 30 ML UDC PO PRN (21:48)
[2023-12-29] MEDS: CLOZAPINE 100 MG TABLET PO SCH (22:00)
[2023-12-29] MEDS: DOCUSATE SODIUM 100 MG CAPSULE PO SCH (22:00)
[2023-12-29] MEDS: DIVALPROEX SODIUM 500 MG TABLET.DR PO SCH (22:00)
[2023-12-30] VITALS (48 sets, daily range): BP systolic 89–137; BP diastolic 62–87; TEMP 97.9–99.1; O2SAT 84–100
[2023-12-30] MEDS: PANTOPRAZOLE 40 MG VIAL IV SCH (06:41)
[2023-12-30 07:38] LABS: BASOPHILS % (AUTO) 0.1 % (0.0-2.0); HEMATOCRIT 28 % (39-51); HEMOGLOBIN 10.7 g/dL (13.5-17.5); LYMPHOCYTES # (AUTO) 0.6 K/uL (0.8-4.8); LYMPHOCYTES % (AUTO) 10.2 % (20.0-44.0); MEAN CORPUSCULAR HEMOGLOBIN 37 PG (26.0-33.0); MEAN CORPUSCULAR HGB CONC 38 g/dl (31.0-36.0); MEAN CORPUSCULAR VOLUME 96 fL (80-96); MONOCYTES # (AUTO) 0.5 K/uL (0.1-1.30); MONOCYTES % (AUTO) 8.3 % (2.0-12.0); NEUTROPHILS # (AUTO) 4.8 K/uL (1.8-8.9); NEUTROPHILS % (AUTO) 81.4 % (43.0-81.0); PLATELET COUNT (AUTO) 270 K/uL (150-450); RED BLOOD CELL COUNT(AUTO) 2.91 MIL/uL (4.5-6.0); RED CELL DISTRIBUTION WIDTH 13.5 % (11.5-15.0)
[2023-12-30 07:55] LABS: INR 1.05 (0.91-1.10); PARTIAL THROMBOPLASTIN TIME 31.4 SEC (24.3-34.3); PROTHROMBIN TIME 11.1 SECS (9.2-11.1)
[2023-12-30 10:48] LABS: CALCIUM, SERUM 8.4 mg/dL (8.5-10.1); CREATININE 0.6 mg/dL (0.6-1.3); MAGNESIUM 2.2 mg/dL (1.8-2.4); PHOSPHORUS 3.3 mg/dL (2.5-4.9); POTASSIUM 4.3 mmol/L (3.5-5.1)
[2023-12-30] MEDS: VANCOMYCIN HCL 1.25 GM in IV D5W 250 ML IV SCH (11:08)
[2023-12-30 11:30] LABS: ALBUMIN 1.6 g/dL (3.4-5.0); BILIRUBIN,DIRECT 0.1 mg/dL (0.0-0.2); BILIRUBIN,TOTAL 0.4 mg/dL (0.2-1.0); TOTAL PROTEIN, SERUM 6.3 g/dL (6.4-8.2)
[2023-12-30] MEDS: IPRATROPIUM NEB FS 0.5 MG/2.5 ML AMPUL.NEB NEB SCH (11:44)
[2023-12-30] MEDS: IV NS 0.9% 250 ML IV PRN (21:57)
[2023-12-31] VITALS (49 sets, daily range): BP systolic 79–122; BP diastolic 58–86; TEMP 97.7–98; O2SAT 89–100
[2023-12-31] MEDS: ACETAMINOPHEN 325 MG TABLET PO PRN (02:46)
[2023-12-31 06:37] LABS: BASOPHILS % (AUTO) 0.5 % (0.0-2.0); HEMATOCRIT 28 % (39-51); HEMOGLOBIN 9.9 g/dL (13.5-17.5); LYMPHOCYTES # (AUTO) 1.2 K/uL (0.8-4.8); LYMPHOCYTES % (AUTO) 13.2 % (20.0-44.0); MEAN CORPUSCULAR HEMOGLOBIN 32 PG (26.0-33.0); MEAN CORPUSCULAR HGB CONC 35 g/dl (31.0-36.0); MEAN CORPUSCULAR VOLUME 92 fL (80-96); MONOCYTES # (AUTO) 0.8 K/uL (0.1-1.30); NEUTROPHILS # (AUTO) 7.1 K/uL (1.8-8.9); NEUTROPHILS % (AUTO) 77.3 % (43.0-81.0); PLATELET COUNT (AUTO) 266 K/uL (150-450); RED BLOOD CELL COUNT(AUTO) 3.07 MIL/uL (4.5-6.0); RED CELL DISTRIBUTION WIDTH 13.4 % (11.5-15.0); WHITE BLOOD COUNT (AUTO) 9.2 K/uL (4.3-11.0)
[2023-12-31 11:53] LABS: CALCIUM, SERUM 8.1 mg/dL (8.5-10.1); CREATININE 0.6 mg/dL (0.6-1.3); POTASSIUM 4.7 mmol/L (3.5-5.1)
[2024-01-01] VITALS (51 sets, daily range): BP systolic 96–127; BP diastolic 69–104; TEMP 97.6–98.3; O2SAT 83–100
[2024-01-01] MEDS: PANTOPRAZOLE 40 MG TABLET.DR PO SCH (08:02)
[2024-01-01 11:28] LABS: CALCIUM, SERUM 7.9 mg/dL (8.5-10.1); CREATININE 0.6 mg/dL (0.6-1.3); POTASSIUM 3.8 mmol/L (3.5-5.1)
[2024-01-02] VITALS (41 sets, daily range): BP systolic 102–130; BP diastolic 62–88; TEMP 97.6–98.1; O2SAT 5–100
[2024-01-02 05:11] LABS: BASOPHILS % (AUTO) 0.2 % (0.0-2.0); HEMATOCRIT 31 % (39-51); HEMOGLOBIN 10.9 g/dL (13.5-17.5); LYMPHOCYTES # (AUTO) 1.2 K/uL (0.8-4.8); LYMPHOCYTES % (AUTO) 21.5 % (20.0-44.0); MEAN CORPUSCULAR HEMOGLOBIN 34 PG (26.0-33.0); MEAN CORPUSCULAR HGB CONC 36 g/dl (31.0-36.0); MEAN CORPUSCULAR VOLUME 95 fL (80-96); MONOCYTES # (AUTO) 0.7 K/uL (0.1-1.30); MONOCYTES % (AUTO) 11.2 % (2.0-12.0); NEUTROPHILS # (AUTO) 3.9 K/uL (1.8-8.9); NEUTROPHILS % (AUTO) 67.1 % (43.0-81.0); PLATELET COUNT (AUTO) 257 K/uL (150-450); RED BLOOD CELL COUNT(AUTO) 3.24 MIL/uL (4.5-6.0); RED CELL DISTRIBUTION WIDTH 13.4 % (11.5-15.0); WHITE BLOOD COUNT (AUTO) 5.8 K/uL (4.3-11.0)
[2024-01-02 07:02] LABS: BAND % (MANUAL) 1 % (0.0-5.0); LYMPHOCYTES % (MANUAL) 22 % (16-48); MONOCYTES % (MANUAL) 9 % (0-11.0); MYELOCYTES % 2 % (0-0); NEUTROPHILS % (MANUAL) 62 (42-76); PLATELET ESTIMATE ADEQUATE; PROMYELOCYTES % 2 % (0-0); REACTIVE LYMPHOCYTES 2 % (0-0); SMUDGE CELLS FEW
[2024-01-02 07:03] LABS: ANISOCYTOSIS 1+; HYPOCHROMASIA 1+
[2024-01-02 11:56] LABS: CREATININE 0.5 mg/dL (0.6-1.3)
[2024-01-03] VITALS (36 sets, daily range): BP systolic 107–135; BP diastolic 67–89; TEMP 97.4–98.2; O2SAT 86–99
[2024-01-03 05:07] LABS: BASOPHILS % (AUTO) 0.2 % (0.0-2.0); HEMATOCRIT 29 % (39-51); HEMOGLOBIN 10.5 g/dL (13.5-17.5); LYMPHOCYTES # (AUTO) 1.3 K/uL (0.8-4.8); LYMPHOCYTES % (AUTO) 20.8 % (20.0-44.0); MEAN CORPUSCULAR HEMOGLOBIN 33 PG (26.0-33.0); MEAN CORPUSCULAR HGB CONC 36 g/dl (31.0-36.0); MEAN CORPUSCULAR VOLUME 93 fL (80-96); MONOCYTES # (AUTO) 0.6 K/uL (0.1-1.30); MONOCYTES % (AUTO) 9.1 % (2.0-12.0); NEUTROPHILS # (AUTO) 4.4 K/uL (1.8-8.9); NEUTROPHILS % (AUTO) 69.9 % (43.0-81.0); PLATELET COUNT (AUTO) 266 K/uL (150-450); RED BLOOD CELL COUNT(AUTO) 3.14 MIL/uL (4.5-6.0); RED CELL DISTRIBUTION WIDTH 13.4 % (11.5-15.0); WHITE BLOOD COUNT (AUTO) 6.3 K/uL (4.3-11.0)
[2024-01-03 07:58] LABS: CALCIUM, SERUM 8.1 mg/dL (8.5-10.1); CREATININE 0.6 mg/dL (0.6-1.3); POTASSIUM 4.3 mmol/L (3.5-5.1)
[2024-01-04] VITALS (31 sets, daily range): BP systolic 98–135; BP diastolic 58–92; TEMP 97.1–98; O2SAT 92–100
[2024-01-04 09:55] LABS: ABG BASE EXCESS 6.8 mmol/L (-2.0-2.0); ABG OXYGEN SATURATION 93.5 % (92.0-98.5); ABG PCO2 36.8 mmHg (35.0-45.0); ABG PH 7.527 (7.340-7.440); ABG PO2 67.5 mmHg (75.0-100.0); ABG TOTAL HEMOGLOBIN 11.9 G/dL (14.0-18.0); AaDO2 464.3 mmHg; COHb 0.2 % (0.5-1.5); MetHb 0.3 % (0.0-1.5); SITE, ABG Right Radial; VENT MODE, BG HFNC 60L 80%
[2024-01-04 12:15] LABS: CALCIUM, SERUM 8.5 mg/dL (8.5-10.1); CREATININE 0.6 mg/dL (0.6-1.3); POTASSIUM 3.7 mmol/L (3.5-5.1)
[2024-01-05] VITALS (26 sets, daily range): BP systolic 105–140; BP diastolic 68–97; TEMP 96.3–97.6; O2SAT 88–100
[2024-01-05 11:46] LABS: CALCIUM, SERUM 7.9 mg/dL (8.5-10.1); CREATININE 0.5 mg/dL (0.6-1.3); POTASSIUM 3.7 mmol/L (3.5-5.1)
[2024-01-06] VITALS (34 sets, daily range): BP systolic 105–131; BP diastolic 63–89; TEMP 97.4–97.8; O2SAT 83–100
[2024-01-06 05:16] LABS: BASOPHILS % (AUTO) 0.1 % (0.0-2.0); HEMATOCRIT 33 % (39-51); HEMOGLOBIN 11.5 g/dL (13.5-17.5); LYMPHOCYTES # (AUTO) 1.4 K/uL (0.8-4.8); LYMPHOCYTES % (AUTO) 12.4 % (20.0-44.0); MEAN CORPUSCULAR HEMOGLOBIN 32 PG (26.0-33.0); MEAN CORPUSCULAR HGB CONC 35 g/dl (31.0-36.0); MEAN CORPUSCULAR VOLUME 93 fL (80-96); MONOCYTES # (AUTO) 0.7 K/uL (0.1-1.30); MONOCYTES % (AUTO) 5.9 % (2.0-12.0); NEUTROPHILS # (AUTO) 9.4 K/uL (1.8-8.9); NEUTROPHILS % (AUTO) 81.6 % (43.0-81.0); PLATELET COUNT (AUTO) 246 K/uL (150-450); RED BLOOD CELL COUNT(AUTO) 3.55 MIL/uL (4.5-6.0); RED CELL DISTRIBUTION WIDTH 13.5 % (11.5-15.0); WHITE BLOOD COUNT (AUTO) 11.5 K/uL (4.3-11.0)
[2024-01-06 05:24] LABS: CALCIUM, SERUM 8.2 mg/dL (8.5-10.1); CREATININE 0.6 mg/dL (0.6-1.3); MAGNESIUM 2.1 mg/dL (1.8-2.4); PHOSPHORUS 3.5 mg/dL (2.5-4.9); POTASSIUM 3.9 mmol/L (3.5-5.1)
[2024-01-06] MEDS: IPRATROPIUM NEB FS 0.5 MG/2.5 ML AMPUL.NEB ONE (23:31)
[2024-01-07] VITALS (19 sets, daily range): BP systolic 115–141; BP diastolic 73–85; TEMP 97.8–98.6; O2SAT 78–99
[2024-01-07] MEDS: IPRATROPIUM NEB FS 0.5 MG/2.5 ML AMPUL.NEB ONE ×2 (02:25→07:26)
[2024-01-07 05:03] LABS: BASOPHILS # (AUTO) 0.1 K/uL (0.0-0.2); BASOPHILS % (AUTO) 0.5 % (0.0-2.0); HEMATOCRIT 34 % (39-51); HEMOGLOBIN 11.7 g/dL (13.5-17.5); LYMPHOCYTES # (AUTO) 1.6 K/uL (0.8-4.8); LYMPHOCYTES % (AUTO) 13.6 % (20.0-44.0); MEAN CORPUSCULAR HEMOGLOBIN 32 PG (26.0-33.0); MEAN CORPUSCULAR HGB CONC 34 g/dl (31.0-36.0); MEAN CORPUSCULAR VOLUME 92 fL (80-96); MONOCYTES # (AUTO) 0.8 K/uL (0.1-1.30); MONOCYTES % (AUTO) 6.6 % (2.0-12.0); NEUTROPHILS # (AUTO) 9.4 K/uL (1.8-8.9); NEUTROPHILS % (AUTO) 79.3 % (43.0-81.0); PLATELET COUNT (AUTO) 227 K/uL (150-450); RED BLOOD CELL COUNT(AUTO) 3.72 MIL/uL (4.5-6.0); RED CELL DISTRIBUTION WIDTH 14.4 % (11.5-15.0); WHITE BLOOD COUNT (AUTO) 11.9 K/uL (4.3-11.0)
[2024-01-07 06:11] LABS: CALCIUM, SERUM 7.9 mg/dL (8.5-10.1); CREATININE 0.6 mg/dL (0.6-1.3); PHOSPHORUS 3.4 mg/dL (2.5-4.9); POTASSIUM 3.8 mmol/L (3.5-5.1)
[2024-01-08] VITALS (18 sets, daily range): BP systolic 108–127; BP diastolic 66–84; TEMP 97.9–98.8; O2SAT 67–99
[2024-01-08 06:42] LABS: BASOPHILS % (AUTO) 0.1 % (0.0-2.0); HEMATOCRIT 33 % (39-51); HEMOGLOBIN 11.3 g/dL (13.5-17.5); LYMPHOCYTES # (AUTO) 1.2 K/uL (0.8-4.8); LYMPHOCYTES % (AUTO) 12.3 % (20.0-44.0); MEAN CORPUSCULAR HEMOGLOBIN 32 PG (26.0-33.0); MEAN CORPUSCULAR HGB CONC 35 g/dl (31.0-36.0); MEAN CORPUSCULAR VOLUME 91 fL (80-96); MONOCYTES # (AUTO) 0.7 K/uL (0.1-1.30); MONOCYTES % (AUTO) 6.9 % (2.0-12.0); NEUTROPHILS % (AUTO) 80.7 % (43.0-81.0); PLATELET COUNT (AUTO) 220 K/uL (150-450); RED BLOOD CELL COUNT(AUTO) 3.56 MIL/uL (4.5-6.0); RED CELL DISTRIBUTION WIDTH 14.6 % (11.5-15.0); WHITE BLOOD COUNT (AUTO) 9.9 K/uL (4.3-11.0)
[2024-01-08 07:09] LABS: CREATININE 0.6 mg/dL (0.6-1.3); PHOSPHORUS 3.6 mg/dL (2.5-4.9)
[2024-01-09] VITALS (20 sets, daily range): BP systolic 114–126; BP diastolic 70–84; TEMP 97.4–98.4; O2SAT 88–99
[2024-01-09 07:14] LABS: BASOPHILS % (AUTO) 0.3 % (0.0-2.0); HEMATOCRIT 31 % (39-51); HEMOGLOBIN 10.7 g/dL (13.5-17.5); LYMPHOCYTES # (AUTO) 2.4 K/uL (0.8-4.8); LYMPHOCYTES % (AUTO) 24.8 % (20.0-44.0); MEAN CORPUSCULAR HEMOGLOBIN 32 PG (26.0-33.0); MEAN CORPUSCULAR HGB CONC 35 g/dl (31.0-36.0); MEAN CORPUSCULAR VOLUME 91 fL (80-96); MONOCYTES # (AUTO) 0.9 K/uL (0.1-1.30); MONOCYTES % (AUTO) 9.7 % (2.0-12.0); NEUTROPHILS # (AUTO) 6.3 K/uL (1.8-8.9); NEUTROPHILS % (AUTO) 65.2 % (43.0-81.0); PLATELET COUNT (AUTO) 194 K/uL (150-450); RED BLOOD CELL COUNT(AUTO) 3.38 MIL/uL (4.5-6.0); RED CELL DISTRIBUTION WIDTH 14.3 % (11.5-15.0); WHITE BLOOD COUNT (AUTO) 9.7 K/uL (4.3-11.0)
[2024-01-09 07:41] LABS: CALCIUM, SERUM 8.1 mg/dL (8.5-10.1); CREATININE 0.6 mg/dL (0.6-1.3); MAGNESIUM 1.9 mg/dL (1.8-2.4); PHOSPHORUS 3.3 mg/dL (2.5-4.9); POTASSIUM 3.9 mmol/L (3.5-5.1)
[2024-01-09] MEDS: methylPREDNISolone SOD SUCC 125 MG/2ML VIAL IV SCH (09:34)
[2024-01-10] VITALS (17 sets, daily range): BP systolic 111–127; BP diastolic 69–79; TEMP 97.6–98.2; O2SAT 90–99
[2024-01-10 07:50] LABS: BASOPHILS % (AUTO) 0.1 % (0.0-2.0); HEMATOCRIT 31 % (39-51); HEMOGLOBIN 10.6 g/dL (13.5-17.5); LYMPHOCYTES # (AUTO) 2.5 K/uL (0.8-4.8); LYMPHOCYTES % (AUTO) 16.2 % (20.0-44.0); MEAN CORPUSCULAR HEMOGLOBIN 32 PG (26.0-33.0); MEAN CORPUSCULAR HGB CONC 35 g/dl (31.0-36.0); MEAN CORPUSCULAR VOLUME 93 fL (80-96); MONOCYTES # (AUTO) 1.5 K/uL (0.1-1.30); MONOCYTES % (AUTO) 9.7 % (2.0-12.0); NEUTROPHILS # (AUTO) 11.5 K/uL (1.8-8.9); PLATELET COUNT (AUTO) 203 K/uL (150-450); RED CELL DISTRIBUTION WIDTH 14.9 % (11.5-15.0); WHITE BLOOD COUNT (AUTO) 15.5 K/uL (4.3-11.0)
[2024-01-10 08:10] LABS: CALCIUM, SERUM 7.7 mg/dL (8.5-10.1); CREATININE 0.6 mg/dL (0.6-1.3); MAGNESIUM 1.9 mg/dL (1.8-2.4); PHOSPHORUS 3.8 mg/dL (2.5-4.9); POTASSIUM 3.9 mmol/L (3.5-5.1)
[2024-01-10 10:29] LABS: ABG BASE EXCESS 6.7 mmol/L (-2.0-2.0); ABG OXYGEN SATURATION 93.4 % (92.0-98.5); ABG PCO2 39.3 mmHg (35.0-45.0); ABG PH 7.504 (7.340-7.440); ABG PO2 70.2 mmHg (75.0-100.0); ABG TOTAL HEMOGLOBIN 12.3 G/dL (14.0-18.0); AaDO2 198.7 mmHg; COHb 0.1 % (0.5-1.5); MetHb 0.1 % (0.0-1.5); O2Hb 93.2 % (94.0-97.0); SITE, ABG Right Radial; VENT MODE, BG 6LNC
[2024-01-11] VITALS (15 sets, daily range): BP systolic 105–117; BP diastolic 69–84; TEMP 97.7–98.2; O2SAT 90–98
[2024-01-11 06:38] LABS: HEMATOCRIT 33 % (39-51); MEAN CORPUSCULAR HEMOGLOBIN 31 PG (26.0-33.0); MEAN CORPUSCULAR HGB CONC 34 g/dl (31.0-36.0); MEAN CORPUSCULAR VOLUME 92 fL (80-96); MONOCYTES # (AUTO) 1.2 K/uL (0.1-1.30)
[2024-01-11 07:01] LABS: BASOPHILS % (AUTO) 0.2 % (0.0-2.0); HEMOGLOBIN 11.3 g/dL (13.5-17.5); LYMPHOCYTES # (AUTO) 1.5 K/uL (0.8-4.8); LYMPHOCYTES % (AUTO) 11.9 % (20.0-44.0); MONOCYTES % (AUTO) 9.3 % (2.0-12.0); NEUTROPHILS # (AUTO) 9.9 K/uL (1.8-8.9); NEUTROPHILS % (AUTO) 78.6 % (43.0-81.0); PLATELET COUNT (AUTO) 197 K/uL (150-450); WHITE BLOOD COUNT (AUTO) 12.6 K/uL (4.3-11.0)
[2024-01-11 07:04] LABS: CALCIUM, SERUM 7.9 mg/dL (8.5-10.1); CREATININE 0.5 mg/dL (0.6-1.3); MAGNESIUM 1.7 mg/dL (1.8-2.4); PHOSPHORUS 3.2 mg/dL (2.5-4.9); POTASSIUM 3.7 mmol/L (3.5-5.1)
[2024-01-11] MEDS: MAGNESIUM OXIDE 400 MG TABLET PO ONE (10:47)
[2024-01-12] VITALS (18 sets, daily range): BP systolic 116–121; BP diastolic 49–79; TEMP 98.1–99; O2SAT 93–98
[2024-01-12 06:35] LABS: BASOPHILS % (AUTO) 0.2 % (0.0-2.0); HEMATOCRIT 31 % (39-51); HEMOGLOBIN 10.8 g/dL (13.5-17.5); LYMPHOCYTES # (AUTO) 0.9 K/uL (0.8-4.8); LYMPHOCYTES % (AUTO) 11.1 % (20.0-44.0); MEAN CORPUSCULAR HEMOGLOBIN 32 PG (26.0-33.0); MEAN CORPUSCULAR HGB CONC 35 g/dl (31.0-36.0); MEAN CORPUSCULAR VOLUME 91 fL (80-96); MONOCYTES # (AUTO) 1.2 K/uL (0.1-1.30); MONOCYTES % (AUTO) 14.7 % (2.0-12.0); NEUTROPHILS # (AUTO) 6.1 K/uL (1.8-8.9); PLATELET COUNT (AUTO) 189 K/uL (150-450); RED BLOOD CELL COUNT(AUTO) 3.39 MIL/uL (4.5-6.0); RED CELL DISTRIBUTION WIDTH 15.4 % (11.5-15.0); WHITE BLOOD COUNT (AUTO) 8.3 K/uL (4.3-11.0)
[2024-01-12 08:22] LABS: CALCIUM, SERUM 8.6 mg/dL (8.5-10.1); CREATININE 0.5 mg/dL (0.6-1.3); MAGNESIUM 2.1 mg/dL (1.8-2.4); POTASSIUM 4.3 mmol/L (3.5-5.1)
[2024-01-12] MEDS ORDERED: PRED20TA PO (09:34)
[2024-01-12] MEDS ORDERED: ALBUT2 NEB (09:34)
[2024-01-12] MEDS: predniSONE 20 MG TABLET PO SCH (09:54)
[2024-01-12] MEDS: ALBUTEROL FS 2.5 MG/3 ML VIAL.NEB NEB PRN (10:46)
[2024-01-13] VITALS (15 sets, daily range): BP systolic 118–126; BP diastolic 76–79; TEMP 97.3–97.7; O2SAT 91–98
[2024-01-13 07:35] LABS: CALCIUM, SERUM 8.5 mg/dL (8.5-10.1); POTASSIUM 4.5 mmol/L (3.5-5.1)
[2024-01-13 07:52] LABS: CREATININE 0.5 mg/dL (0.6-1.3)
[2024-01-14] VITALS (12 sets, daily range): BP systolic 123; BP diastolic 72; TEMP 98.1; O2SAT 94–99
[2024-01-15] VITALS (16 sets, daily range): BP systolic 114–125; BP diastolic 74–81; TEMP 97.1–98.1; O2SAT 93–99
[2024-01-16] VITALS (14 sets, daily range): BP systolic 109–117; BP diastolic 66–81; TEMP 97.5–98.6; O2SAT 93–100
[2024-01-17] VITALS (7 sets, daily range): BP systolic 112–124; BP diastolic 74–78; TEMP 97.5–97.7; O2SAT 95–100
[2024-01-18] VITALS (7 sets, daily range): BP systolic 115; BP diastolic 75; TEMP 97.9; O2SAT 92–96
[2024-01-19] MEDS ORDERED: predniSONE 20 MG TABLET PO SCH (09:00)
== END 2024-01-18 16:30 | DRG 177 ==
LOC: ER 06:27 → ICU 15:15 → TELE 01-07 10:32 → MED 01-10 10:22
PROVIDERS: ADMIT Internal Medicine; ATTEND Internal Medicine
PROC: 5A09357 Assistance with Respiratory Ventilation, Less than 24 Consecutive Hours, Continuous Positive Airway Pressure (ICD-10-PCS; principal; 2023-12-29)
DX: J15.69 Pneumonia due to other Gram-negative bacteria (principal); E43 Unspecified severe protein-calorie malnutrition; G93.41 Metabolic encephalopathy; J96.01 Acute respiratory failure with hypoxia; R65.21 Severe sepsis with septic shock; J96.02 Acute respiratory failure with hypercapnia; J44.1 Chronic obstructive pulmonary disease with (acute) exacerbation; J44.0 Chronic obstructive pulmonary disease with (acute) lower respiratory infection; K92.2 Gastrointestinal hemorrhage, unspecified; Z20.822 Contact with and (suspected) exposure to COVID-19; I10 Essential (primary) hypertension; Z79.899 Other long term (current) drug therapy; F29 Unspecified psychosis not due to a substance or known physiological condition; E88.09 Other disorders of plasma-protein metabolism, not elsewhere classified; R79.89 Other specified abnormal findings of blood chemistry; E78.5 Hyperlipidemia, unspecified; Z87.01 Personal history of pneumonia (recurrent); I48.0 Paroxysmal atrial fibrillation; D64.9 Anemia, unspecified
CPT/HCPCS: 36415; 36600; 71045-TC; 80048-TC; 80076-TC; 80202-TC; 82803-TC; 83605-TC; 83735-TC; 83880; 84100-TC; 84484-TC; 85025-TC; 85610-TC; 85730-TC; 87040-TC; 87081-TC; 93970-TC; 94660; 94760-TC; 94761-TC; 94762-TC; 94799-TC; 97110-TC; 97112-TC; 97116-TC; 97530-TC; A4217; A4223; G0378; J0692; J1650; J2405; J2470; J2919; J3370; J7030; J7040; J7042; J7050; J7060; Q9967